=== PATIENT | male | born 1940 | race Caucasian/White ===

== ENCOUNTER → 2017-07-23 12:35 | Emergency (ER) | payer MEDICARE ==
[~2017-07-23 12:35] MED LIST: ACET325 PO; ACYC5TO15G TOP; ACYC800 PO; ALBU3IS INH; ALBU90OI INH; ALBU90OI61; AMIT10; AMIT10 PO; ASPI325 PO; ASPI81CH PO; ASPI81EC PO; Amox Tr-K Clv1 EAC1 PO; Artificial Tea1 EACH BOTHEYES; Ativan1 MG PO; CHOL10002; CHOL10002 PO; CIPR500 PO; CLOP75 PO; CYAN1000 PO; DOCU100 PO; ERGO400 PO; ESOM20; ETAN50I; Enbrel50 MG/1 M1 SC; FENTANYL1 EAC1 TD; FERR325 PO; FLUO10 PO; FOLI1 PO; GABA100 PO; GABA300 PO; GAVILAX17 GM PO; GLYCAS PR; HYDACE10B PO; HYDCHL25 PO; HYDMETSO BOTHEYES; HYDMOR2 PO; HYDSUL200 PO; Hair, Skin & N1 EACH PO; Hydroxychloroq200 MG PO; IBUP400 PO; IBUP600 PO; K-TAB ER20 MEQ PO; LANS30EC; LAVAP17G PO; LEFL20 PO; LISI5 PO; LOPE2EL PT; LORA.5 PO; MAGCIT300 PO; MELA3 PO; METTREX2.5 PO; MIRALAX17 GM PO; MIRT15 PO; MULVIT PO; MULVITMIND PO; MULVITMINF PO; Milk Of Ma400 MG/5 M PO; NAPR500 PO; Norco 5-325 Ta1 EACH PO; OMEP20ER PO; ONDA4ODT; ONDA4ODT MM; OXYACE5T PO; OXYACE7.5T PO; OXYC10ER PO; OXYC10TA19 PO; OXYC15ER PO; OXYC1L; OXYC5 PO; Omeprazole20 M1 PO; PARO10 PO; PARO20; PARO20 PO; PAXIL 40 MG; PAXIL40 MG PO; PHENY100ER; PRAV20 PO; PRAVASTATIN SOD10 MG PO; PRED1 PO; PRED10 PO; PRED20 PO; PRED5 PO; PRILOSEC; PROM25 PO; PROM25S PR; Prednisone20 MG PO; QUET25 PO; REMICADE IV; RXOXYACE PO; Roxicodone5 MG PO; SULF500A; TAMS.4ER; TAMS.4ER PO; TRAZ100 PO; TRIA15CR3 TOP; TUMS300 MG PO; Tylenol325 MG PO; Ultram50 MG PO; Valium5 MG PO; XARELTO15 MG PO; ZEGERID OTC 201 EACH PO; Zegerid 20 MG1 EACH PO; Zofran4 MG PO; [UNRECOGNIZED DRUG - CODE]; [UNRECOGNIZED DRUG - OTHER]; [UNRECOGNIZED DRUG - OTHER] BOTHEYES; [UNRECOGNIZED DRUG - OTHER] IM; [UNRECOGNIZED DRUG - REMARK]
== END | disposition left against medical advice (07) ==
LOC: ER 12:35
DX: Z53.21 Procedure and treatment not carried out due to patient leaving prior to being seen by health care provider (principal)

== ENCOUNTER 2017-07-23 13:25 | Emergency (ER) | payer MEDICARE, OTHER ==
[~2017-07-23] VITALS: Ht 175.3 cm; Wt 59.0 kg
[~2017-07-23 13:25] MED LIST changes: -Ativan1 MG PO; -PROM25S PR
[2017-07-23 14:10] LABS: BASOPHILS ABSOLUTE AUTO 0.04 K/mm3 (0.00-0.23); BASOPHILS PERCENT AUTO 0 % (0-2); EOSINOPHILS ABSOLUTE AUTO 0.53 K/mm3 (0.00-0.68); EOSINOPHILS PERCENT AUTO 6 % (0-6); Hematocrit 33.2 % (37.0-53.0); Hemoglobin 10.6 g/dL (13.5-17.5); IMMATURE GRAN ABSOLUTE AUTO 0.11 K/mm3 (0.00-0.10); IMMATURE GRAN PERCENT AUTO 1 % (0-1); LYMPHOCYTES ABSOLUTE AUTO 1.17 K/mm3 (0.84-5.20); LYMPHOCYTES PERCENT AUTO 13 % (21-46); MONOCYTES PERCENT AUTO 6 % (4-13); Mean Corpuscular HGB 27.3 pg (26.0-34.0); Mean Corpuscular HGB Conc 31.9 g/dL (31.5-36.5); Mean Corpuscular Volume 86 fL (80-100); Mean Platelet Volume 10.2 fL (9.1-12.4); NEUTROPHILS ABSOLUTE AUTO 6.89 K/mm3 (1.96-9.15); NEUTROPHILS PERCENT AUTO 74 % (41-73); Platelet Count 199 K/mm3 (150-400); RDW Coefficient Variation 15.9 % (11.7-14.2); RDW Standard Deviation 49.2 fL (35.1-46.3); Red Blood Cell Count 3.88 M/mm3 (4.30-5.90); White Blood Cell Count 9.34 K/mm3 (4.00-11.30)
[2017-07-23 14:24] LABS: Alanine Aminotransfer (ALT/SGP 16 U/L (12-78); Albumin, Blood 2.6 g/dL (3.4-5.0); Albumin/Globulin Ratio 0.7 (0.8-1.8); Alk Phos 323 U/L (50-136); Anion Gap 7 mmol/L (6-16); Aspartate Aminotrans (AST/SGOT 22 U/L (12-37); Bilirubin, Total 0.3 mg/dL (0.1-1.0); Blood Urea Nitrogen 12 mg/dL (8-24); Bun/Creatinine Ratio 14.6 (12.0-20.0); CO2, Blood 28 mmol/L (21-32); Calcium, Blood 8.2 mg/dL (8.5-10.1); Chloride, Blood 108 mmol/L (98-108); Creatinine, Blood 0.82 mg/dL (0.60-1.20); Globulin, Blood 3.5 g/dL (2.2-4.0); Glomerular Filtration Rate >60 (60-); Glucose, Blood 93 mg/dL (70-99); Potassium, Blood 3.7 mmol/L (3.5-5.5); Sodium, Blood 143 mmol/L (136-145); Total Protein, Blood 6.1 g/dL (6.4-8.2); Troponin I <0.015 ng/mL (0.000-0.040)
[2017-07-23 16:55] LABS: Bilirubin, Urine Neg (Neg); Blood, Urine 4+ (Neg); Glucose Qualitative, Urine Neg (Neg); Ketones, Urine Neg (Neg); Leukocyte Esterase, Urine Neg (Neg); Nitrite, Urine Neg (Neg); Protein, Urine 1+ (Neg); Urobilinogen, Urine NORM (Normal)
[2017-07-23 16:58] LABS: Appearance, Urine Clear (Clear); Color, Urine Yellow (P-Yellow)
[2017-07-23 17:00] LABS: Bacteria Few /hpf; Squamous Epithelial Cells Few /hpf (Few); White Blood Cells, Urine 0-2 /hpf (0-5)
[2017-07-23] MEDS ORDERED: PROM25S PR (17:25)
[2017-07-23] MEDS ORDERED: Ativan1 MG PO (17:25)
== END 2017-07-23 17:43 | disposition home or self-care (01) ==
LOC: ER 13:25
PROVIDERS: Internal Medicine
DX: R11.2 Nausea with vomiting, unspecified (principal); J44.9 Chronic obstructive pulmonary disease, unspecified; Z88.1 Allergy status to other antibiotic agents; Z88.8 Allergy status to other drugs, medicaments and biological substances; Z79.899 Other long term (current) drug therapy; Z79.52 Long term (current) use of systemic steroids; Z79.82 Long term (current) use of aspirin; Z79.891 Long term (current) use of opiate analgesic; Z87.891 Personal history of nicotine dependence
CPT/HCPCS: 36415; 51701; 71020; 80053; 81001; 84484; 85025; 93005; 93010; 96361; 96374; 99284; J2405; J7030